=== PATIENT | female | born 1945 | race Caucasian/White ===

== ENCOUNTER 2017-03-25 05:25 | Inpatient (IN) ==
[2017-03-25] MEDS ORDERED: *HR* HYDROmorphone 2 MG/ML SYRINGE IVP PRN ×2 (07:39→11:48)
[2017-03-25] MEDS ORDERED: 0.9 % Sodium Chloride 1,000 ML IVC SCH ×2 (07:45→11:48)
[2017-03-25] MEDS ORDERED: *HR* FentaNYL (PF) 100 MCG/2 ML VIAL ONE (08:45)
[2017-03-25] MEDS ORDERED: *HR* Succinylcholine 200 MG/10 ML VIAL IVP ONE (08:45)
[2017-03-25] MEDS ORDERED: Lidocaine -MPF 2% 2 ML VIAL ONE (08:45)
[2017-03-25] MEDS ORDERED: *HR* Propofol 200 MG/20 ML VIAL IVP ONE ×2 (08:45→10:22)
[2017-03-25] MEDS ORDERED: Dexamethasone 4 MG/ML VIAL ONE (08:46)
[2017-03-25] MEDS ORDERED: Ondansetron 4 MG/2 ML VIAL ONE (08:46)
[2017-03-25] MEDS ORDERED: Bupivacaine/EPI 1:200k 0.25%PF 30 ML VIAL ONE (08:52)
--- NOTE | 2017-03-25 08:53 | Anesthesia Evaluation PreOp ---
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: Denies Any Significant HX Other Medical History: Denies Any Significant HX Anesthesia History: Problems (nausea and slow to emerge) Alcohol Use: none Drug use: none Medications and Allergies Aspirin [Lo-Dose Aspirin EC] 81 mg PO QAM 03/25/17 [History] Atorvastatin [Lipitor] 20 mg PO HS 03/25/17 [History] Multivit-Min/FA/Lycopen/Lutein [Centrum Silver Tablet] 1 each PO DAILY 03/25/17 [History] Vitamin E 2,000 unit PO DAILY 03/25/17 [History] 3 Allergy/AdvReac Type Severity Reaction Status Date / Time Sulfa (Sulfonamide Allergy Swelling Verified 07/22/16 15:41 Antibiotics) of Lip/Tongue/Throat - Meds/Allergy Pre-op Review Medications Reviewed: Yes Allergies Reviewed: Yes Beta Blockers on Current Med List: No Anesthesia Results - Labs Laboratory Tests 03/25/17 03/25/17 04:25 04:25 WBC 15.4 H Hgb 14.7 Hct 44.2 Plt Count 243 Sodium 139 Potassium 4.3 Chloride 107 Carbon Dioxide 20 BUN 19 Creatinine 0.86 Est GFR ( Amer) > 60 Est GFR (Non-Af Amer) > 60 BUN/Creatinine Ratio 22 Glucose 120 H Calculated Osmolality 291 Calcium 9.2 Anesthesia Exam Weight: 80 kg NPO (# of Hours): > 8 hrs - HEENT Pupil (Motor): Pupils equal Mallampati: III Teeth: Poor dentition Oral Opening: Greater than 3 - PYTHON ARCHITECT LOC: Oriented PYTHON ARCHITECT Motor: Normal RUE, Normal LUE, Normal RLE, Normal LLE, Normal Face - Cardiac Rhythm: Regular Murmur: None - Pulmonary Breath Sounds: bilateral Clear Respiratory Effort: Symmetrical Anesthesia Assess/Plan ASA Score: 2 Modified Hinton Scale for Level of Consciousness: Cooperative, oriented, and tranquil Anesthetic Plan: General Monitoring Plan: Standard Monitors Recovery Plan: PACU
[2017-03-25] MEDS ORDERED: Albuterol 2.5 MG/3 ML NEBULIZER ONE (09:17)
[2017-03-25] MEDS ORDERED: Scopolamine Patch 1.5 MG PATCH.TD72 ONE (09:21)
[2017-03-25] MEDS ORDERED: Albuterol 2.5 MG/3 ML NEBULIZER IH ONE (09:22)
--- NOTE | 2017-03-25 09:23 | General Surg History&Physical ---
Date of Encounter: 03/25/17 Time of Encounter: 08:55 History of Present Illness Chief complaint: lower abdominal pain, acute appendicitis HPI: Ms. Nassar is a 71 year old female transferred from [facility] for further evaluation and treatment after presenting to the ED with progressive lower abdominal pain, nausea and vomiting. The patient initially thought it was "gas " but because of persistence and progressive severity patient presented to the emergency department for further evaluation and treatment. White count was 15.4 with 12.8% neutrophils. CT demonstrated findings consistent with early acute appendicitis. The patient was referred to surgical services at [facility] for likely appendectomy. The CT was personally reviewed with [facility]. 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 Past medical history: Hyperlipidemia Surgical history: Tonsillectomy at age 22, excision of a benign cyst right chest wall; laparoscopy 2 for infertility; tubal ligation Allergies: Sulfa Medications: Lipitor Social history: The patient is currently single; ; the patient has smoked admitting to 1-1/2 packs daily for approximately 50 years; she successfully quit 2 months ago after a prolonged effort to cease smoking; denies any alcohol or illicit drug use Family history: Noncontributory Physical examination: Age-appropriate, in no acute distress, skin is warm, without obvious jaundice 1.68 m tall, 79.7 kg, BMI 28.4 The patient has been afebrile with maximum temperature 99.3, pulse ranging 83 -112; respiratory 18-20, blood pressure 144/74. SPO2 on room air 94- 97% Lungs: Clear bilaterally with no obvious abdominal pain on deep inspiration Cardiac: Rate rapid but no appreciable murmurs Abdomen: Soft with tenderness primarily in the right lower quadrant. No discernible masses, no rebound. Hypoactive bowel sounds Extremities: No obvious clubbing, cyanosis, or edema. Laboratories: White count 15.4, hemoglobin 14.7, hematocrit 44.2. Platelet count 243,000; 12.8% neutrophils Electrolytes within normal limits, BUN 19, creatinine 0.86. LFTs within normal limits, lipase 49 Impression: 71-year-old female with new onset lower abdominal pain, nausea and vomiting. Clinical and radiologic findings consistent with acute appendicitis. Surgery has been recommended and discussed in detail. The patient is a reasonable candidate for laparoscopic appendectomy but understands that an open appendectomy may become necessary. Risks include hemorrhage, infection , intra-abdominal abscess, injury to adjacent structures and possible Removal of a normal appendix. If a normal appendix is encountered, the appendectomy will be completed to eliminate potential acute appendicitis in the future. The patient expressed understanding and is willing to proceed. Consent has been obtained. Past Med Surg Social Fam HX - Past Medical History Medical history: COPD, hyperlipidemia Psychiatric history: no psych history - Social History Smoking Status: Former smoker Smokeless Tobacco Status: No Alcohol use: none Drug use: none - Family History Father Hx Family Cardiac Disorders: Yes (Open heart) Medications and Allergies Aspirin [Lo-Dose Aspirin EC] 81 mg PO QAM 03/25/17 [History] Atorvastatin [Lipitor] 20 mg PO HS 03/25/17 [History] Multivit-Min/FA/Lycopen/Lutein [Centrum Silver Tablet] 1 each PO DAILY 03/25/17 [History] Vitamin E 2,000 unit PO DAILY 03/25/17 [History] 3 Allergy/AdvReac Type Severity Reaction Status Date / Time Sulfa (Sulfonamide Allergy Swelling Verified 07/22/16 15:41 Antibiotics) of Lip/Tongue/Throat Review of Systems All systems PM: A 10-system review of systems was performed and is negative for pertinent findings except as documented above in the HPI. Results - Labs All other labs normal.
[2017-03-25] MEDS ORDERED: CefOXitin 2,000 MG VIAL ONE (09:33)
[2017-03-25] MEDS ORDERED: *HR* Rocuronium Bromide 50 MG/5 ML VIAL ONE (09:45)
[2017-03-25] MEDS ORDERED: EPHEDrine 50 MG/ML VIAL ONE (09:45)
[2017-03-25] MEDS ORDERED: Neostigmine Methylsulfate 3 MG/3 ML SYRINGE ONE (09:50)
[2017-03-25] MEDS ORDERED: *HR* Phenylephrine 10 MG/ML VIAL ONE (09:55)
[2017-03-25] MEDS ORDERED: *HR* HYDROmorphone (PF) 1 MG/ML SYRINGE IVP PRN (10:09)
[2017-03-25] MEDS ORDERED: 0.9 % Sodium Chloride 500 ML IVC ONE ×2 (10:42→16:09)
[2017-03-25] MEDS: *HR* Promethazine 25 MG/ML VIAL IVP PRN ×2 (10:45→11:05)
--- NOTE | 2017-03-25 10:46 | Operative Note ---
Date of procedure: 03/25/17 Pre-op diagnosis: Acute appendicitis Post-op diagnosis: same Procedure: Laparoscopic appendectomy Complications: None apparent Anesthesia: GETA Local Anesthetics: 0.25% Sensorcaine HCL with Epinephrine 1:200,000 SubQ (cc) ( 30 mL) Surgeon: Michele Johns Estimated blood loss (cc): 5 IV fluids (cc): 700 Specimen: appendix Condition: stable Disposition: PACU Procedure in Detail: Brief history: 71-year-old female transferred from [facility] after presenting there with new onset lower abdominal pain and nausea and vomiting. Clinical and radiologic findings consistent with acute appendicitis prompting the patient's referral to [facility] for surgical evaluation and treatment. Historical details and physical findings are available in the dictated H&P. Technique: The patient was brought to the operating room where she was placed supine upon the operating room table. Surgical consent had been obtained preoperatively. The patient was appropriately identified as to person and procedure. The accuracy of this information was confirmed by the procedure team. The patient was intubated and anesthetized under the supervision of Dr Virginie Garzon. The abdomen was prepped and draped in the usual sterile fashion. Several milliliters of 0.25% bupivacaine with 1-200,000 epinephrine was infiltrated into the infraumbilical skin. A small transverse incision was created with dissection extended to the fascia. Additional bupivacaine with epinephrine was infiltrated into the fascia. The fascia was then grasped, elevated, and incised. An 11 mm Xcel port was established. The rigid laparoscope was placed within the obturator to visualize passage through the layers of the anterior abdominal wall. When the abdominal cavity was accessed, the obturator was replaced by the rigid laparoscope, the abdomen was insufflated with gaseous carbon dioxide. There was no obvious visible injury from establishing the port. Under direct visualization a 5 mm port was placed in the suprapubic midline and a 12 mm port was established in the left lower quadrant, midclavicular line. Both of these sites were infiltrated with bupivacaine with epinephrine. An acutely inflamed appendix was identified. It was necessary to dissect/incise the lateral peritoneal reflection along the cecum and ascending colon to facilitate exposure of the appendix. The mesoappendix was divided at the junction between the appendix and the cecum. The appendix was transected at this junction using an Ethicon ATS 45 mm stapler (blue cartridge). The remaining mesoappendix was divided using the Ethicon ATS 45 mm stapler using a vascular cartridge. The appendix was from the surrounding structures and placed in an endoscopic pouch. The appendix was extracted through the infraumbilical opening, recovered, and sent to pathology. The staple lines appeared to be intact. Hemostasis was adequate. A small amount of bloody fluid had accumulated in the right paracolic gutter. This was aspirated using an endoscopic suction device. The pneumoperitoneum was evacuated and the instrumentation removed. The fascia of the infraumbilical opening was closed with interrupted [id number] 0 Vicryl using S retractors. The skin edges of the port sites were approximated with subcuticular 4-0 Vicryl. The incisions were sealed with Dermabond dermal adhesive. The patient was taken recovery in stable condition. Needle, sponge, and instrument counts were correct at the close of the case. Total volume of 0.25% bupivacaine with 1-200,000 epinephrine used during this procedure, 30 mL.
[2017-03-25] MEDS ORDERED: Ketorolac 30 MG/ML VIAL IVP ONE (10:50)
--- NOTE | 2017-03-25 11:18 | Anesthesia Evaluation Post Op ---
Date of Encounter: 03/25/17 Time of Encounter: 11:18 - Vital Signs Vital Signs: Last Vital Signs Temp 97.7 F 03/25/17 10:40 Pulse 86 03/25/17 11:00 Resp 17 03/25/17 11:00 BP 97/52 03/25/17 11:00 Pulse Ox 95 03/25/17 11:00 - Lungs Lungs: Clear Ascult./Percussion - Airway Airway: Non-obstructed - Cardiovascular Regular Rate - Mental Status Mental Status: Alert & Oriented, Answers Appropriately - Pain Pain Scale: 3 - Nausea Vomiting Nausea Vomiting: Responds to treatment with IV Meds - Hydration Hydration: NPO - Discharge PostOp Status: Transfer Patient to floor
[2017-03-25] MEDS ORDERED: Acetaminophen 325 MG TABLET PO PRN (11:48)
[2017-03-25] MEDS ORDERED: Ondansetron 4 MG/2 ML VIAL IVP PRN (11:48)
[2017-03-25] MEDS ORDERED: *HR* OxyCODONE/APAP 5/325 TABLET PO PRN (11:48)
[2017-03-26 05:48] LABS: Basophils % 0.1 %; Eosinophils % 0.1 %; Hematocrit 37.4 % (35.3-44.9); Immature Granulocytes % 0.2 % (0-4); Lymphocytes # 0.9 K/mcL (0.6-4.6); Lymphocytes % 8.7 %; Mean Corpuscular HGB Conc 32.1 g/dL (31.6-35.5); Mean Corpuscular Hemoglobin 29.3 pg (28.0-33.3); Mean Corpuscular Volume 91.2 fL (83.0-100.0); Mean Platelet Volume 10.8 fL (9.4-12.4); Monocytes # 0.9 K/mcL (0.0-1.3); Neutrophils # 8.9 K/mcL (1.6-8.9); Platelet Count 176 K/mcL (140-400); Red Cell Distribution Width 13.9 % (11.5-14.5); Segmented Neutrophils % 82.9 %
[2017-03-26 06:28] VITALS: BP 111/66
--- NOTE | 2017-03-26 12:22 | General Surgery Progress Note ---
Date of Encounter: 03/26/17 Time of Encounter: 12:00 Subjective Patient reports: feels better Narrative: General Surgery - POD #1 DISCHARGE SUMMARY patient feeling well, voicing no complaints. Describes episode emesis this AM - Clear mucoid fluid produced. Since that episode, patient feeling well. Afebrile, currently 97.7, pulse 81, respirations 18, blood pressure 111/66. SPO2 on room air 92-93%. Lungs: Clear to auscultation; scattered basilar rales clear with cough; the cough was nonproductive Cardiac: Regular rate, no appreciable murmurs Abdomen: Soft, minimal tenderness in from the umbilical port site as expected post laparoscopic surgery. Prior abdominal pain no longer evident. Port sites clean and dry. Active bowel sounds. Patient tolerating diet Laboratories: Leukocytosis has corrected to 10.8; hemoglobin 12.0, hematocrit 37.4 (reflective of hydration before, during, and after surgery) Differential also within normal limits with resolution of the previously noted neutrophilia. Impression: Acute appendicitis; postoperative day 1 status post laparoscopic appendectomy Acceptable postoperative status. Hyperlipidemia Plan: Discharge home Follow up with me in the office, 03/30/17 Instructions: Regular diet Activity as tolerated, lifting limited to less than 20 pounds Patient may shower, wash incisions with soap and water Tylenol, ibuprofen, Motrin, Advil etc. as needed for pain Prescription for Percocet 5/325, #6, 1 every 6 hours as needed for pain not relieved by [id number] medication Contact my office immediately if any worsening pain, or recurrent nausea and vomiting. Patient may resume/continue home meds Condition at the time of discharge: Good Objective Vital Signs - Last 8 Hours Temp Pulse Resp BP Pulse Ox 03/26/17 06:24 97.7 F 81 18 111/66 93 Intake and Output 03/25/17 03/26/17 03/26/17 23:59 07:59 15:59 Intake Total 1340 / 1340 0 / 0 240 / 240 Output Total 100 / 100 200 / 200 Balance 1240 / 1240 -200 / -200 240 / 240 Intake: IV Fluids 1000 / 1000 0.9 % Sodium Chloride 1,000 ML 500 / 500 @ 100 mls/hr IVC .Q10H BOY Rx#: [id number] 0.9 % Sodium Chloride 500 ML @ 500 / 500 937.5 mls/hr IVC .Q32M ONE Rx#: [id number] Oral 340 / 340 0 / 0 240 / 240 Output: Urine 100 / 100 200 / 200 Other: Meal Dinner Breakfast Percent of Meal Consumed 50% 30% Weight 82.191 kg Patient Weight 03/26/17 23:59 Weight 82.191 kg - Labs 03/26/17 05:30 - VTE Documentation of Mechanical Device: Intermittent pneumatic compression device Consult Discharge Plan - Plan Referrals: Temo Bermudez MD [Primary Care Provider] -
--- NOTE | 2017-03-26 12:25 | Discharge Summary ---
Outpatient Proc Discharge Plan - Plan Additional Instructions: Regular diet Activity as tolerated, lifting limited to less than 20 pounds Patient may shower, wash incisions with soap and water Tylenol, ibuprofen, Motrin, Advil, etc. as needed for pain Prescription for Percocet 5/325, #6, 1 every 6 hours as needed for pain not relieved by [id number] medications Patient to resume home meds Patient to contact my office should increased abdominal pain or recurrent nausea /vomiting develop Prescriptions: OxyCODONE/APAP 5/325 [Percocet 5/325 MG] 1 each PO Q6H PRN #6 tablet PRN Reason: pain Home Medications: Aspirin [Lo-Dose Aspirin EC] 81 mg PO QAM 03/25/17 [History] Atorvastatin [Lipitor] 20 mg PO HS 03/25/17 [History] Calcium Carbonate [Calcium] 600 mg PO DAILY 03/25/17 [History] Cetirizine HCl [Zyrtec] 10 mg PO DAILY 03/25/17 [History] Cholecalciferol (D-3) [Vitamin D] 2,000 unit PO DAILY 03/25/17 [History] Multivit-Min/FA/Lycopen/Lutein [Centrum Silver Tablet] 1 tab PO DAILY 03/25/17 [ History] Acetaminophen [Tylenol] 650 mg PO Q6H PRN tablet 03/26/17 [Rx] OxyCODONE/APAP 5/325 [Percocet 5/325 MG] 1 each PO Q6H PRN #6 tablet 03/26/17 [ Rx]
== END 2017-03-26 12:55 | disposition home or self-care (01) | DRG 343 ==
LOC: 3ANU
PROVIDERS: ADMIT Surgery; ATTEND Surgery